=== PATIENT | female | born 1995 | race Caucasian/White ===

== ENCOUNTER 2016-09-13 09:17 | Inpatient (IN) | payer OTHER ==
[~2016-09-13] VITALS: Ht 175.3 cm; Wt 66.8 kg
[2016-09-13 10:22] LABS: ADD MIUA? YES; BILIRUBIN NEGATIVE; BLOOD NEGATIVE; COLOR STRAW ((YELLOW)); GLUCOSE (STRIP) >=500; KETONES 80; LEUKOCYTES NEGATIVE; NITRITE NEGATIVE; PROTEIN (STRIP) 30; SPECIFIC GRAVITY 1.022 (1.000-1.030); UROBILINOGEN 0.2 MG/DL (0.2-1.0)
[2016-09-13 10:23] LABS: BASOPHIL COUNT 0.1 K/uL (0-0.1); EOSINOPHIL (%) 0.7 % (0-5); EOSINOPHIL COUNT 0.2 K/uL (0-0.3); HEMATOCRIT 45.8 % (36.0-46.0); IMMATURE GRANULOCYTE (%) 1.2 % (0.0-0.7); IMMATURE GRANULOCYTE COUNT 0.3 K/uL; INSTRUMENT ABS NEUTROPHIL CT 13.4 K/uL; LYMPHOCYTE COUNT 7.1 K/uL (1.0-2.8); MCH 29.9 PG (29.0-34.0); MCHC 35.4 G/DL (30.0-36.0); MCV 84.5 FL (83-99); MEAN PLAT.VOLUME 10.1 uM^3 (9.5-12.4); MONOCYTE (%) 4.1 % (3-12); MONOCYTE COUNT 0.9 K/uL (0-0.8); NEUTROPHIL (%) 61.1 % (45-76); NEUTROPHIL COUNT 13.4 K/uL (1.8-6.4); NRBC (%) 0.1 /100 WBC (0-0); PLATELET COUNT 356 K/uL (156-360); RBC DIS.WIDTH-CV 12.4 % (11.8-14.6); RBC DIS.WIDTH-SD 37.6 % (39-53); RED BLOOD COUNT 5.42 M/uL (3.80-5.20); WHITE BLOOD COUNT 21.9 K/uL (4.1-10.2)
[2016-09-13 10:28] LABS: BACTERIA NONE SEEN /HPF; EPITHELIAL CELLS RARE /HPF; MUCUS TRACE /LPF; RED BLOOD CELLS 0-5 /HPF (0-5); WHITE BLOOD CELLS 0-5 /HPF (0-5)
[2016-09-13 10:37] LABS: CHLORIDE 99 mEq/L (99-109); POTASSIUM 3.5 mEq/L (3.7-5.4); SODIUM 136 mEq/L (136-147)
[2016-09-13 10:39] LABS: CARBOXY HGB 2.2 % (0-5); METHEMOGLOBIN 1.5 % (0-1.5); PCO2 < 20 mm Hg (35-45); PO2 122 mm Hg (80-100); pH 7.51 (7.35-7.45)
[2016-09-13 10:40] LABS: ANION GAP 23 MEQ/L (2-14)
[2016-09-13 10:41] LABS: COMMENTS - BLOOD GASES +C; FI02 21 %; SITE RB; TOTAL RESP RATE 40 resp/min
[2016-09-13 10:41] LABS: GLUCOSE 538 mg/dL (70-99)
[2016-09-13 10:42] LABS: GFR ESTIMATE (CALCULATED) > 59 mL/min/
[2016-09-13 10:43] LABS: UREA NITROGEN (BUN) 11 mg/dL (9-23)
[2016-09-13 10:51] LABS: QUANTITATIVE HCG < 4.0 MIU/ML
[2016-09-13] MEDS ORDERED: LABETALOL HCL100 MG PO (14:06)
[2016-09-13] MEDS ORDERED: LANTUS 3 M100 UNITS1 SC (14:06)
[2016-09-13 14:08] LABS: POINT-OF-CARE METER ID UU13113702
[2016-09-13 15:23] LABS: POINT-OF-CARE METER ID UU14100415
[2016-09-13 16:15] LABS: CHLORIDE 104 mEq/L (99-109); SODIUM 140 mEq/L (136-147)
[2016-09-13 16:17] LABS: GLUCOSE 343 mg/dL (70-99)
[2016-09-13 16:18] LABS: ANION GAP 20 MEQ/L (2-14)
[2016-09-13 16:21] LABS: GFR ESTIMATE (CALCULATED) > 59 mL/min/
[2016-09-13 16:22] LABS: UREA NITROGEN (BUN) 9 mg/dL (9-23)
[2016-09-13 16:42] LABS: POINT-OF-CARE METER ID UU14100415
[2016-09-13 17:42] LABS: POINT-OF-CARE METER ID UU13113702
[2016-09-13 18:00] VITALS: BP 141/94
[2016-09-13 19:00] VITALS: BP 143/86
[2016-09-13 19:17] LABS: POINT-OF-CARE METER ID UU14162636; POINT-OF-CARE USER ID 606021424
[2016-09-13 19:42] LABS: METH RESISTANT S AUREUS PCR NEGATIVE (NEGATIVE)
[2016-09-13 19:46] LABS: PROBE CHECK PASS; SPECIMEN PROCESSING CONTROL PASS
[2016-09-13 20:00] VITALS: BP 143/82
[2016-09-13 20:16] LABS: ANION GAP 15 MEQ/L (2-14); CHLORIDE 104 MEQ/L (99-109); POTASSIUM 3.7 MEQ/L (3.7-5.4); SAMPLE HEMOLYSIS CHECK 0; SAMPLE ICTERIC CHECK 0; SAMPLE LIPEMIA CHECK 0; SODIUM 139 MEQ/L (136-147)
[2016-09-13 20:21] LABS: GFR ESTIMATE (CALCULATED) > 59 mL/min/; GLUCOSE 210 mg/dL (70-99); UREA NITROGEN (BUN) 8 mg/dL (9-23)
[2016-09-13 20:51] LABS: POINT-OF-CARE METER ID UU13113731
[2016-09-13 21:00] VITALS: BP 128/80
[2016-09-13 21:03] LABS: ALKALINE PHOSPHATASE 41 IU/L (3-129); GAMMA-GT 42 IU/L (4-73); TOTAL BILIRUBIN 0.5 MG/DL (0.0-1.0)
[2016-09-13 22:00] VITALS: BP 132/77
[2016-09-13 22:18] LABS: POINT-OF-CARE METER ID UU13113748; POINT-OF-CARE USER ID PHATLC
[2016-09-13 23:00] VITALS: BP 128/71
[2016-09-13 23:22] LABS: POINT-OF-CARE METER ID UU13113748; POINT-OF-CARE USER ID PHATLC
[2016-09-14] VITALS (16 sets, daily range): BP systolic 111–164; BP diastolic 75–104
[2016-09-14 00:20] LABS: POINT-OF-CARE METER ID UU14174217; POINT-OF-CARE USER ID PHATLC
[2016-09-14 00:55] LABS: CHLORIDE 109 mEq/L (99-109); POTASSIUM 3.4 mEq/L (3.7-5.4); SODIUM 138 mEq/L (136-147)
[2016-09-14 00:56] LABS: GLUCOSE 202 mg/dL (70-99)
[2016-09-14 00:58] LABS: ANION GAP 10 MEQ/L (2-14)
[2016-09-14 01:03] LABS: GFR ESTIMATE (CALCULATED) > 59 mL/min/; UREA NITROGEN (BUN) 7 mg/dL (9-23)
[2016-09-14 01:08] LABS: POINT-OF-CARE METER ID UU14162636
[2016-09-14 02:14] LABS: POINT-OF-CARE METER ID UU14162636; POINT-OF-CARE USER ID PHATLC
[2016-09-14 03:17] LABS: POINT-OF-CARE METER ID UU14162636; POINT-OF-CARE USER ID PHATLC
[2016-09-14 03:40] LABS: POINT-OF-CARE METER ID UU14162636; POINT-OF-CARE USER ID PHATLC
[2016-09-14 04:36] LABS: POINT-OF-CARE METER ID UU14162636; POINT-OF-CARE USER ID PHATLC
[2016-09-14 04:52] LABS: CHLORIDE 106 mEq/L (99-109); POTASSIUM 3.3 mEq/L (3.7-5.4); SODIUM 137 mEq/L (136-147)
[2016-09-14 04:53] LABS: MAGNESIUM 1.2 mg/dL (1.3-2.7)
[2016-09-14 04:54] LABS: GLUCOSE 175 mg/dL (70-99)
[2016-09-14 04:55] LABS: ANION GAP 11 MEQ/L (2-14)
[2016-09-14 04:58] LABS: GFR ESTIMATE (CALCULATED) > 59 mL/min/; UREA NITROGEN (BUN) 5 mg/dL (9-23)
[2016-09-14 05:07] LABS: EOSINOPHIL (%) 0.1 % (0-5); HEMATOCRIT 41.6 % (36.0-46.0); IMMATURE GRANULOCYTE (%) 0.6 % (0.0-0.7); IMMATURE GRANULOCYTE COUNT 0.2 K/uL; INSTRUMENT ABS NEUTROPHIL CT 17.9 K/uL; LYMPHOCYTE COUNT 4.3 K/uL (1.0-2.8); MCH 30.2 PG (29.0-34.0); MCHC 36.8 G/DL (30.0-36.0); MCV 82.2 FL (83-99); MONOCYTE (%) 5.1 % (3-12); MONOCYTE COUNT 1.2 K/uL (0-0.8); NEUTROPHIL (%) 75.9 % (45-76); NEUTROPHIL COUNT 17.9 K/uL (1.8-6.4); RBC DIS.WIDTH-CV 12.5 % (11.8-14.6); RBC DIS.WIDTH-SD 36.7 % (39-53); RED BLOOD COUNT 5.06 M/uL (3.80-5.20); WHITE BLOOD COUNT 23.6 K/uL (4.1-10.2)
[2016-09-14 05:41] LABS: MEAN PLAT.VOLUME 9.2 uM^3 (9.5-12.4); PLAT.SUFFICIENCY ADEQUATE; PLATELET COUNT 227 K/uL (156-360)
[2016-09-14 05:50] LABS: POINT-OF-CARE METER ID UU14162636
[2016-09-14 06:55] LABS: POINT-OF-CARE METER ID UU14162636
[2016-09-14 08:53] LABS: ANION GAP 13 MEQ/L (2-14); CHLORIDE 105 MEQ/L (99-109); GFR ESTIMATE (CALCULATED) > 59 mL/min/; GLUCOSE 179 mg/dL (70-99); POTASSIUM 3.3 MEQ/L (3.7-5.4); SAMPLE HEMOLYSIS CHECK 0; SAMPLE ICTERIC CHECK 0; SAMPLE LIPEMIA CHECK 0; SODIUM 137 MEQ/L (136-147); UREA NITROGEN (BUN) 5 mg/dL (9-23)
[2016-09-14 09:20] LABS: POINT-OF-CARE METER ID UU14162636
[2016-09-14 10:12] LABS: POINT-OF-CARE METER ID UU14162636
[2016-09-14 10:31] LABS: HBSG INDEX 0.19
[2016-09-14 10:33] LABS: ANTI-HEPATITIS B CORE (IGM) Nonreactive; HBC IgM INDEX 0.06
[2016-09-14 10:43] LABS: HPCA INDEX 4.41
[2016-09-14 11:18] LABS: AMYLASE 24 IU/L (1-118); HDL CHOLESTEROL 26 MG/DL (Desirable>=50); LIPASE 24 U/L (1.0-51.0); NON-HDL CHOLESTEROL 233 mg/dL (Desirable<160); TOTAL CHOLESTEROL 259 mg/dL (Desirable<200); TRIGLYCERIDES 1175 MG/DL (Normal: <150)
[2016-09-14 12:08] LABS: POINT-OF-CARE METER ID UU13113731
[2016-09-14 13:02] LABS: ANION GAP 11 MEQ/L (2-14); CHLORIDE 103 MEQ/L (99-109); GFR ESTIMATE (CALCULATED) > 59 mL/min/; GLUCOSE 250 mg/dL (70-99); POTASSIUM 3.3 MEQ/L (3.7-5.4); SAMPLE HEMOLYSIS CHECK 0; SAMPLE ICTERIC CHECK 0; SAMPLE LIPEMIA CHECK 0; SODIUM 137 MEQ/L (136-147); UREA NITROGEN (BUN) 5 mg/dL (9-23)
[2016-09-14 13:04] LABS: INTERNAL CONTROL VALID? YES
[2016-09-14 15:41] LABS: POINT-OF-CARE METER ID UU13113731
[2016-09-14 16:17] LABS: ANION GAP 14 MEQ/L (2-14); CHLORIDE 101 MEQ/L (99-109); POTASSIUM 3.3 MEQ/L (3.7-5.4); SAMPLE HEMOLYSIS CHECK 0; SAMPLE ICTERIC CHECK 0; SAMPLE LIPEMIA CHECK 0; SODIUM 138 MEQ/L (136-147)
[2016-09-14 16:22] LABS: GFR ESTIMATE (CALCULATED) > 59 mL/min/; GLUCOSE 283 mg/dL (70-99); UREA NITROGEN (BUN) 6 mg/dL (9-23)
[2016-09-14 22:09] LABS: POINT-OF-CARE METER ID UU13113731; POINT-OF-CARE USER ID PHATLC
[2016-09-15] VITALS: BP 112/60
[2016-09-15 01:00] VITALS: BP 112/60
[2016-09-15 06:00] VITALS: BP 124/80
[2016-09-15 06:39] LABS: ANION GAP 8 MEQ/L (2-14); CHLORIDE 106 MEQ/L (99-109); GFR ESTIMATE (CALCULATED) > 59 mL/min/; GLUCOSE 245 mg/dL (70-99); MAGNESIUM 1.9 mg/dl (1.3-2.7); POTASSIUM 3.9 MEQ/L (3.7-5.4); SAMPLE HEMOLYSIS CHECK 0; SAMPLE ICTERIC CHECK 0; SAMPLE LIPEMIA CHECK 0; SODIUM 139 MEQ/L (136-147); UREA NITROGEN (BUN) 8 mg/dL (9-23)
[2016-09-15 06:49] LABS: EOSINOPHIL (%) 1.9 % (0-5); EOSINOPHIL COUNT 0.2 K/uL (0-0.3); HEMATOCRIT 35.4 % (36.0-46.0); IMMATURE GRANULOCYTE (%) 0.4 % (0.0-0.7); INSTRUMENT ABS NEUTROPHIL CT 5.8 K/uL; MCH 31.2 PG (29.0-34.0); MCHC 36.4 G/DL (30.0-36.0); MCV 85.5 FL (83-99); MEAN PLAT.VOLUME 9.5 uM^3 (9.5-12.4); MONOCYTE (%) 6.5 % (3-12); MONOCYTE COUNT 0.7 K/uL (0-0.8); NEUTROPHIL (%) 53.5 % (45-76); NEUTROPHIL COUNT 5.8 K/uL (1.8-6.4); PLATELET COUNT 187 K/uL (156-360); RBC DIS.WIDTH-CV 12.8 % (11.8-14.6); RBC DIS.WIDTH-SD 39.5 % (39-53); RED BLOOD COUNT 4.14 M/uL (3.80-5.20); WHITE BLOOD COUNT 10.8 K/uL (4.1-10.2)
[2016-09-15 08:00] VITALS: BP 136/85
[2016-09-15 08:13] LABS: POINT-OF-CARE METER ID UU14162636
[2016-09-15] MEDS ORDERED: CIPRO500 MG PO (09:42)
[2016-09-15] MEDS ORDERED: NOVOLOG PE100 UNITS/ SC (09:42)
[2016-09-15] MEDS ORDERED: LANTUS 3 M100 UNITS1 SC (09:42)
[2016-09-15] MEDS ORDERED: ULTRAM50 MG PO (09:42)
[2016-09-15] MEDS ORDERED: FLAGYL500 MG PO (09:42)
[2016-09-16 11:04] LABS: HCV RNA (IU/mL) <15 IU/mL (<15)
[2016-09-17 10:19] LABS: HCV RNA (LOG IU/mL) <1.18 (<1.18)
== END 2016-09-15 11:28 | disposition home or self-care (01) | DRG 639 ==
LOC: EME 09:17 → EDOF 17:13 → 4WEST 17:13
PROVIDERS: Emergency Medicine; Internal Medicine; Internal Medicine Critical Care Medicine; Internal Medicine Nephrology; Physician Assistant
DX: E10.10 Type 1 diabetes mellitus with ketoacidosis without coma (principal); I10 Essential (primary) hypertension; F17.200 Nicotine dependence, unspecified, uncomplicated; K52.9 Noninfective gastroenteritis and colitis, unspecified; R63.1 Polydipsia; D72.829 Elevated white blood cell count, unspecified; R11.10 Vomiting, unspecified; E87.6 Hypokalemia; E83.42 Hypomagnesemia; Z79.4 Long term (current) use of insulin; Z88.0 Allergy status to penicillin
CPT/HCPCS: 36600; 71250; 74176; 80048; 80048 91; 80061; 80076; 81003; 82150; 82803; 82948; 82977; 83036; 83605; 83630; 83690; 83735; 84100; 84702; 85025; 86705; 86803; 87040; 87340; 87522 90; 87641; 99281; 99285; J0692; J1630; J1644; J1815; J2060; J2405; J3475; J3480; J7030; J7050; J7120; S0028; S0030

== ENCOUNTER 2016-09-23 18:31 | Observation (INO) | payer OTHER ==
[~2016-09-23] VITALS: Ht 175.3 cm; Wt 67.8 kg
[~2016-09-23 18:31] MED LIST: CIPRO500 MG PO; FLAGYL500 MG PO; LABETALOL HCL100 MG PO; LANTUS 3 M100 UNITS1 SC; NOVOLOG PE100 UNITS/ SC; ULTRAM50 MG PO
[2016-09-23 19:14] LABS: POINT-OF-CARE METER ID UU13113778
[2016-09-23 19:43] LABS: HEMATOCRIT 46.6 % (36.0-46.0); MCH 30.3 PG (29.0-34.0); MCHC 35.8 G/DL (30.0-36.0); MCV 84.4 FL (83-99); MEAN PLAT.VOLUME 9.5 uM^3 (9.5-12.4); RBC DIS.WIDTH-CV 12.8 % (11.8-14.6); RBC DIS.WIDTH-SD 38.7 % (39-53); WHITE BLOOD COUNT 17.1 K/uL (4.1-10.2)
[2016-09-23 19:48] LABS: PLATELET COUNT 399 K/uL (156-360); RED BLOOD COUNT 5.52 M/uL (3.80-5.20)
[2016-09-23 20:03] LABS: TROP-I INTERPRETATION NEGATIVE; TROPONIN-I 0.06 ng/mL (0.0-0.30)
[2016-09-23 20:05] LABS: CHLORIDE 97 mEq/L (99-109); POTASSIUM 3.7 mEq/L (3.7-5.4); SODIUM 136 mEq/L (136-147)
[2016-09-23 20:07] LABS: GLUCOSE 293 mg/dL (70-99)
[2016-09-23 20:08] LABS: ANION GAP 21 MEQ/L (2-14)
[2016-09-23 20:11] LABS: GFR ESTIMATE (CALCULATED) > 59 mL/min/
[2016-09-23 20:12] LABS: UREA NITROGEN (BUN) 11 mg/dL (9-23)
[2016-09-23 20:33] LABS: CARBON DIOXIDE (BICARBONATE) 21.3 MEQ/L (20-31)
[2016-09-23 20:41] LABS: QUANTITATIVE HCG < 4.0 MIU/ML
[2016-09-23 23:22] LABS: ADD MIUA? YES; BILIRUBIN NEGATIVE; BLOOD NEGATIVE; COLOR STRAW ((YELLOW)); GLUCOSE (STRIP) >=500; KETONES 5; LEUKOCYTES TRACE; NITRITE NEGATIVE; PROTEIN (STRIP) NEGATIVE; SPECIFIC GRAVITY 1.041 (1.000-1.030); UROBILINOGEN 0.2 MG/DL (0.2-1.0)
[2016-09-23 23:23] LABS: CHLORIDE 103 mEq/L (99-109); POTASSIUM 3.7 mEq/L (3.7-5.4); SODIUM 138 mEq/L (136-147)
[2016-09-23 23:25] LABS: GLUCOSE 249 mg/dL (70-99)
[2016-09-23 23:27] LABS: ANION GAP 17 MEQ/L (2-14)
[2016-09-23 23:29] LABS: GFR ESTIMATE (CALCULATED) > 59 mL/min/
[2016-09-23 23:30] LABS: BACTERIA NONE SEEN /HPF; EPITHELIAL CELLS RARE /HPF; MUCUS TRACE /LPF; RED BLOOD CELLS 0-5 /HPF (0-5); UCUL ADDED? NO; WHITE BLOOD CELLS 0-5 /HPF (0-5)
[2016-09-23 23:30] LABS: UREA NITROGEN (BUN) 9 mg/dL (9-23)
[2016-09-23 23:38] LABS: AMPHETAMINE NEGATIVE (500 ng/mL); BARBITURATES NEGATIVE (200 ng/mL); BENZODIAZEPINES NEGATIVE (150 ng/mL); COCAINE NEGATIVE (150 ng/mL); INTERNAL CONTROLS VALID? YES; METHADONE NEGATIVE (200 ng/mL); METHAMPHETAMINE NEGATIVE (500 ng/mL); OPIATES (MORPHINE) NEGATIVE (100 ng/mL); OXYCODONE NEGATIVE (100 ng/mL); PHENCYCLIDINE NEGATIVE (25 ng/mL); PROPOXYPHENE NEGATIVE (300 ng/mL); THC CANNABINOIDS NEGATIVE (50 ng/mL); TRICYCLIC ANTIDEPRESSANTS NEGATIVE (300 ng/mL)
[2016-09-23 23:46] LABS: POINT-OF-CARE METER ID UU13113702
[2016-09-24 01:14] VITALS: BP 141/76
[2016-09-24 05:56] LABS: TROP-I INTERPRETATION NEGATIVE; TROPONIN-I 0.07 ng/mL (0.0-0.30)
[2016-09-24 08:35] LABS: HEMATOCRIT 42.5 % (36.0-46.0); MCH 30.4 PG (29.0-34.0); MCHC 35.8 G/DL (30.0-36.0); MEAN PLAT.VOLUME 9.9 uM^3 (9.5-12.4); PLATELET COUNT 308 K/uL (156-360); RBC DIS.WIDTH-SD 39.5 % (39-53); WHITE BLOOD COUNT 13.2 K/uL (4.1-10.2)
[2016-09-24 08:45] LABS: ANION GAP 13 MEQ/L (2-14); CHLORIDE 104 MEQ/L (99-109); GFR ESTIMATE (CALCULATED) > 59 mL/min/; GLUCOSE 233 mg/dL (70-99); POTASSIUM 4.1 MEQ/L (3.7-5.4); SAMPLE HEMOLYSIS CHECK 0; SAMPLE ICTERIC CHECK 0; SAMPLE LIPEMIA CHECK 0; SODIUM 137 MEQ/L (136-147); UREA NITROGEN (BUN) 7 mg/dL (9-23)
[2016-09-24 09:13] VITALS: BP 163/98
[2016-09-24] MEDS ORDERED: BENTYL20 MG PO (09:54)
== END 2016-09-24 11:34 | disposition home or self-care (01) ==
LOC: EME 18:31 → EDOF 23:42 → 5WEST 23:42
PROVIDERS: Emergency Medicine; Hospitalist; Nurse Practitioner Family
DX: R07.9 Chest pain, unspecified (principal); E86.0 Dehydration; R11.2 Nausea with vomiting, unspecified; E10.9 Type 1 diabetes mellitus without complications; D72.829 Elevated white blood cell count, unspecified; R10.9 Unspecified abdominal pain; I10 Essential (primary) hypertension; Z88.0 Allergy status to penicillin; Z88.2 Allergy status to sulfonamides; Z88.8 Allergy status to other drugs, medicaments and biological substances
CPT/HCPCS: 71010; 74177; 80048; 80048 91; 81003; 82010; 82803; 82948; 84484; 84702; 85027; 85379; 93005; 99281; 99285; G0378; J1630; J1815; J2405; J7030; J7120; S0028